=== PATIENT | female | born 2000 | race Caucasian/White ===

== ENCOUNTER 2023-05-16 06:49 | Emergency (ER) | payer OTHER ==
[2023-05-16 07:11] VITALS: O2SAT 100
[2023-05-16 07:26] LABS: BILIRUBIN,URINE NEGATIVE (NEGATIVE); GLUCOSE, URINE (UA) NEGATIVE (NEGATIVE); KETONES,URINE (UA) NEGATIVE (NEGATIVE); LEUKOCYTE ESTERASE, URINE SMALL (NEGATIVE); NITRITE,URINE NEGATIVE (NEGATIVE); OCCULT BLOOD,URINE NEGATIVE (NEGATIVE); PROTEIN,URINE TRACE mg/dL (NEGATIVE); UROBILINOGEN,URINE 0.2 (NORMAL) E.U./dL (NORMAL)
[2023-05-16 07:35] LABS: CLARITY,URINE HAZY (CLEAR)
[2023-05-16 07:36] LABS: BACTERIA,URINE Few /HPF (None Seen); RBC,URINE None Seen /HPF (0-5); SQUAMOUS EPITHELIAL CELL,UR MOD Squamous (<= Few); WBC,URINE >25 /HPF (0-5)
--- NOTE | 2023-05-16 07:46 | ED Physician Documentation ---
PD HPI FEMALE - Stated complaint Stated Complaint: FEMALE - Chief complaint Chief Complaint: General - History obtained from History obtained from: Patient - History of Present Illness Timing - onset: Yesterday Timing - duration: Days (1) Timing - details: Abrupt onset, Still present Associated symptoms: Dysuria, Urinary frequency. No: Fever, Back pain, Vaginal discharge Contributing factors: No: Exposed to STD Similar symptoms before: Diagnosis (UTIs) Recently seen: Not recently seen Review of Systems Constitutional: denies: Fever, Chills GI: denies: Abdominal Pain : denies: Discharge Musculoskeletal: denies: Back pain PD PAST MEDICAL HISTORY - Past Medical History Past Medical History: No - Past Surgical History Past Surgical History: No - Present Medications Home Medications: Ambulatory Orders Medication Instructions Recorded Confirmed Phenazopyridine HCl [Pyridium] 100 mg PO TID PRN #15 tablet 05/16/23 Sulfamethox/Trimeth 800/160 1 each PO BID #10 tablet 05/16/23 [Bactrim Ds 800/160] - Allergies Allergies/Adverse Reactions: Allergies Allergy/AdvReac Type Severity Reaction Status Date / Time penicillamine Allergy Rash Verified 03/16/22 12:51 Penicillins Allergy Rash Verified 03/16/22 12:51 - Social History Does the pt smoke?: No Smoking Status: Never smoker Does the pt drink ETOH?: No Does the pt have substance abuse?: No - Immunizations Immunizations are current?: Yes - POLST Patient has POLST: No PD ED PE NORMAL - Vitals Vital signs reviewed: Yes - General General: Alert and oriented X 3, No acute distress, Well developed/nourished - Female Female : Deferred - Back Back: No CVA TTP - Derm Derm: Normal color, Warm and dry - Neuro Neuro: Alert and oriented X 3, Normal speech Results - Vitals Vitals: Vital Signs - 24 hr 05/16/23 05/16/23 07:03 09:13 Temperature 36.8 C Heart Rate 81 67 Respiratory 20 14 Rate Blood Pressure 114/70 124/62 O2 Saturation 100 100 Oxygen O2 Source Room air - Labs Labs: Laboratory Tests 05/16/23 07:07 Urine Color LT. YELLOW Urine Clarity HAZY Urine pH 6.0 Ur Specific [place] 1.020 Urine Protein TRACE Urine Glucose (UA) NEGATIVE Urine Ketones NEGATIVE Urine Occult Blood NEGATIVE Urine Nitrite NEGATIVE Urine Bilirubin NEGATIVE Urine Urobilinogen 0.2 (NORMAL) Ur Leukocyte Esterase SMALL H Urine RBC None Seen Urine WBC >25 H Ur Squamous Epith Cells MOD Squamous H Urine Bacteria Few Ur Microscopic Review INDICATED Urine Culture Comments NOT INDICATED PD Medical Decision Making - ED course Complexity details: reviewed results, considered differential (sounds like UTI. UA is positive enough to be consistent with that. Can treat for it. ), d/w patient Departure - Departure Disposition: 01 Home, Self Care Clinical Impression: UTI (urinary tract infection), Dysuria Condition: Stable Record reviewed to determine appropriate education?: Yes Instructions: ED UTI Cystitis Female Prescriptions: Sulfamethox/Trimeth 800/160 [Bactrim Ds 800/160] 1 each PO BID #10 tablet Phenazopyridine HCl [Pyridium] 100 mg PO TID PRN #15 tablet PRN Reason: Abdominal Pain Comments: Your urine sample does corroborate with your symptoms consistent with urinary tract infection/cystitis. We can treat this with Bactrim antibiotic twice daily for 5 days. Stay well-hydrated. Use some anti-inflammatory such as ibuprofen 400 to 600 mg 2-3 times daily for inflammation and discomfort. Add phenazopyridine if needed for the first few days. I would anticipate improvement over the next 2 to 3 days and resolved by 3 to 5 days. We will do a urine culture on your urine and call you if we need to amend the antibiotic choice based on that. That should result in a couple of days. I sent a prescription to [facility] pharmacy. Forms: PCP List Discharge Date/Time: 05/16/23 09:20
[2023-05-16] MEDS ORDERED: IBUPROFEN 600 MG TABLET PO STA (08:36)
[2023-05-16] MEDS ORDERED: SULFAMETH/TRIMETH DS 800/160 MG TABLET PO STA (08:36)
[2023-05-16] MEDS ORDERED: PHENAZOPYRIDINE 100 MG TABLET PO STA (08:36)
[2023-05-16 09:22] VITALS: BP 124/62
== END 2023-05-16 09:20 | disposition home or self-care (01) ==
LOC: ED 06:49
DX: N39.0 Urinary tract infection, site not specified (principal)
CPT/HCPCS: 81001; 99282; 99283; A9270; 81003; 87086